=== PATIENT | female | born 1995 | race African-American/Black ===

== ENCOUNTER 2020-03-08 14:20 | Outpatient (CLI) | payer OTHER, SELFPAY ==
--- NOTE | ~2020-03-08 | US_ITS ---
EXAMINATION: US OB >= 14 weeks Fetus DATE: 03/08/2020 15:04 INDICATION: Circumvallate placenta. Second trimester. TECHNIQUE: Real-time ultrasound of the pelvis was performed. COMPARISON: None. FINDINGS: There is a single living fetus in vertex presentation. The placenta is anterior and fundal. he art rate is 150 beats per minute (bpm). The amniotic fluid volume is subjectively normal. IMPRESSION: 1. Single living fetus in vertex presentation. 2. Normal placenta. Reviewed, dictated and finalized at location A.
== END 2020-03-08 14:21 | disposition home or self-care (01) ==
PROVIDERS: Visit Provider Obstetrics & Gynecology
DX: O43.119 Circumvallate placenta, unspecified trimester (principal); Z3A.00 Weeks of gestation of pregnancy not specified
CPT/HCPCS: 76805

== ENCOUNTER 2020-04-05 14:42 | Outpatient (CLI) | payer OTHER, SELFPAY ==
--- NOTE | ~2020-04-05 | US_ITS ---
EXAMINATION: US OB follow up DATE: 04/05/2020 15:28 INDICATION: Assess growth at the junction of the second and third trimester TECHNIQUE: Real-time ultrasound of the pelvis was performed. The interpreting radiologist was not pre sent for the study. COMPARISON: None. FINDINGS: There is a single living fetus in vertex presentation. The placenta is anterior. heart rate is 157 beats per minute (bpm). The amniotic fluid volume is subjectively normal. The following biometric data were obtained: Head circumference: 25.0 cm -> 27 weeks 1 days Abdominal circumference: 22.7 cm -> 27 weeks 1 days Femur length: 5.0 cm -> 26 weeks 6 days These measurements are concordant. Head circumference to abdominal circumference ratio: 1.10 (normal range 1.05-1.22). Estimated weight: 1018 g (+/-) 153 g. or 2 lbs. 4 oz. (+/-) 5 oz. IMPRESSION: 1. Single living fetus in vertex presentation with heart rate of 157 bpm. 2. Estimated weight is 28th percentile by Hadlock criteria when 07/03/2020 is used as the estima bruce date of delivery (MG). Please correlate with clinical information or earlier ultrasounds for mos t accurate MG. Reviewed, dictated and finalized at location B. IMPRESSION: 1. Single living fetus in vertex presentation with heart rate of 157 bpm. 2. Estimated weight is 28th percentile by Hadlock criteria when 07/03/2020 is used as the estimated date of delivery (MG). Please correlate with clinica l information or earlier ultrasounds for most accurate MG.
== END 2020-04-05 14:43 | disposition home or self-care (01) ==
PROVIDERS: Visit Provider Obstetrics & Gynecology
DX: O43.119 Circumvallate placenta, unspecified trimester (principal)
CPT/HCPCS: 76816

== ENCOUNTER 2020-05-03 14:22 | Outpatient (CLI) | payer OTHER, SELFPAY ==
--- NOTE | ~2020-05-03 | US_ITS ---
US OB follow up DATE: 05/03/2020 15:11 INDICATION: Growth follow-up TECHNIQUE: Real-time imaging and Doppler analysis COMPARISON: 04/05/2020 and 03/08/2020 at several ultrasound examinations FINDINGS: Live lucio intrauterine gestation, fetus in vertex presentation, longitudinal lie. Ante rior placenta. Amniotic fluid index measures 18.6 cm, within normal range. (5th percentile SENTHIL: 8.8 cm; 95th percent ile SENTHIL: 23.8 cm). Biparietal diameter 8.39 cm; 33 weeks 5 days Head circumference 28.84 cm; 31 weeks 5 days Abdominal circumference 25.85 cm; 30 weeks Femur length 5.85 cm; 30 weeks 4 days Composite age by Wana formula is 31 weeks 4 days +/- 2 weeks 1 day, with MG of 07/01/2020, compar ed to 07/03/2020 by LMP. (Third trimester ultrasound estimates of gestational age are not optimally accurate and should not al ter an established gestational age from first or second trimester ultrasound or reliable LMP.). Head circumference/abdominal circumference measures 1.12, within normal range of 0.965-1.15. Femur length/abdominal circumference 22.63, within normal range Femur length/head secures 20.29, within normal range of 19.19-21.30. Estimated weight is 1609 +/- 2 141 g. IMPRESSION: Normal interval growth Reviewed, dictated and finalized at Location A. Reviewed, dictated and finalized at location A. BACKING STENCILER IMPRESSION: Normal interval growth
== END 2020-05-03 14:23 | disposition home or self-care (01) ==
LOC: ANHIMG 14:27
PROVIDERS: Visit Provider Obstetrics & Gynecology
DX: O43.119 Circumvallate placenta, unspecified trimester (principal); Z3A.31 31 weeks gestation of pregnancy
CPT/HCPCS: 76816

== ENCOUNTER 2020-06-10 10:52 | Outpatient (CLI) | payer OTHER, SELFPAY ==
--- NOTE | ~2020-06-10 | US_ITS ---
EXAMINATION: US OB follow up DATE: 06/10/2020 11:39 INDICATION: Circumvallate placenta, growth assessment, third trimester TECHNIQUE: Real-time ultrasound of the pelvis was performed. The interpreting radiologist was not pre sent for the study. COMPARISON: 05/03/2020 FINDINGS: There is a single living fetus in vertex presentation. The placenta is anterior. card iac activity and movement are noted. heart rate is 144 beats per minute (bpm). The amniot ic fluid index is subjectively normal. The following biometric data were obtained: Biparietal diameter (BPD): 8.9 cm; head circumference (HC): 34.3 cm; abdominal circumference (AC): 32 .5 cm; femur length (FL): 7.2 cm. The head circumference to abdominal circumference ratio is greater than two standard deviations above the mean. These measurements are otherwise concordant. Estimated weight is 3079 g +/- 461 g, which correlates with the 62nd percentile when 07/03/2020 is used as estimated date of delivery. As single measurements, these parameters are each equal to the following estimated gestational ages w ith ranges of +/- 2 standard deviations: BPD: 36 weeks 3 days +/- 3 weeks 1 days. HC: 39 weeks 5 days +/- 2 weeks 5 days. AC: 36 weeks 3 days +/- 3 weeks 0 days. FL: 37 weeks 0 days +/- 3 weeks 1 days. estimated gestational age based solely on measurements from this exam is 37 weeks 3 days +/- 2 weeks 4 days. IMPRESSION: 1. Single living fetus in vertex presentation. 2. Estimated weight is 3079 g +/- 461 g, which correlates with the 62nd percentile when 07/03/19 21 is used as estimated date of delivery. 3. Head circumference to abdominal circumference ratio greater than two standard deviations above the mean. Reviewed, dictated and finalized at location A. SCAPE MANAGER IMPRESSION: 1. Single living fetus in vertex presentation. 2. Estimated weight is 3079 g +/- 461 g, which correlates with the 62nd p ercentile when 07/03/2020 is used as estimated date of delivery. 3. Head circumference to abdominal circumference ratio greater than two standar d deviations above the mean.
== END 2020-06-10 10:53 | disposition home or self-care (01) ==
PROVIDERS: Visit Provider Obstetrics & Gynecology
DX: O43.119 Circumvallate placenta, unspecified trimester (principal); Z3A.37 37 weeks gestation of pregnancy
CPT/HCPCS: 76816

== ENCOUNTER 2020-07-02 01:10 | Inpatient (IN) | payer OTHER, SELFPAY ==
[2020-07-02] VITALS (117 sets, daily range): BP systolic 88–167; BP diastolic 48–127; PULSE 61–144; RESP 14–20; TEMP 36.1–37.1; O2SAT 97–100; BMI 40.8
--- NOTE | 2020-07-02 01:45 | LDADM ---
This patient, Ashanti Estrada, was admitted to Labor/Delivery/Recovery 106 on 07/02/20 at 01:10. Plans for labor, pain management and were discussed with patient. Patient/family oriented to hospital policies and general routines including ID bracelet, bed and alarms, visiting hours, pain management, procedures, bathroom and other care routines, personal items, smoking policy, room service/diet and guest tray routines, infant security routines, and visiting hours. Patient/Family are encouraged to report perceived risks to care and to ask questions if they do not understand what they are told or what they should do. See OBIX for further documentation.
[2020-07-02 02:27] LABS: Basophils Percent Auto 0.2 % (0.2-1.2); Eosinophils Absolute Auto 0.1 K/mm3 (0-0.3); Hematocrit 33.9 % (37.0-47.0); Hemoglobin 10.9 g/dL (12.0-15.0); Immature Granulocyte Absolute 0.16 K/mm3 (0.00-0.031); Immature Granulocyte Percent A 1.1 % (0-0.5); Lymphocytes Percent Auto 11.2 % (18.3-44.2); Mean Corpuscular HGB Conc 32.2 g/dl (32-36); Mean Corpuscular Hemoglobin 26.8 pg (26-34); Mean Corpuscular Volume 83.3 fl (80-100); Mean Platelet Volume 10.8 fl (7.4-10.4); Monocytes Absolute Auto 1.3 K/mm3 (0.1-0.6); Monocytes Percent Auto 9.1 % (2.6-8.5); Neutrophils Absolute Auto 11.1 K/mm3 (1.3-6.7); Neutrophils Percent Auto 77.4 % (45.5-73.1); Platelet Count Result 255 k/mm3 (150-375); Red Blood Count 4.07 M/mm3 (4.2-5.4); Red Cell Distribution Width 14.4 % (11.5-14.5); White Blood Count 14.3 K/mm3 (4.5-10.0)
[2020-07-02] MEDS: LACTATED RINGERS 1,000 ML 125 ML IV CONT ×2 (02:34→04:27)
--- NOTE | 2020-07-02 03:39 | WPDANESEPPF ---
Anes - Initial Pre Proc Eval Procedure: labor epidural Date/Time: 07/02/20 03:39 Surgeon: Sherly Holcomb MD Pre Op Diagnosis: labor pain Pre Op Diagnosis: SROM Patient Data Age: 24 Gender: F Height: Weight: Last Vital Signs Temp 36.4 C L 07/02/20 02:12 Pulse 81 07/02/20 03:38 BP 108/66 07/02/20 03:38 Pulse Ox 99 07/02/20 03:39 Allergies Allergy/AdvReac Type Severity Reaction Status Date / Time No Known Allergies Allergy Verified 07/01/20 12:17 Home Medications Medication Instructions Recorded Confirmed Type docosahexaenoic acid 200 mg capsule mg PO 01/22/20 06/10/20 History Laboratory Tests 07/02/20 07/02/20 02:07 02:08 WBC 14.3 K/mm3 H K/mm3 (4.5-10.0) RBC 4.07 M/mm3 L M/mm3 (4.2-5.4) Hgb 10.9 g/dL L g/dL (12.0-15.0) Hct 33.9 % L % (37.0-47.0) MCV 83.3 fl fl (80-100) MCH 26.8 pg pg (26-34) MCHC 32.2 g/dl g/dl (32-36) RDW 14.4 % % (11.5-14.5) Plt Count 255 k/mm3 k/mm3 (150-375) MPV 10.8 fl H fl (7.4-10.4) Immature Gran % (Auto) 1.1 % H % (0-0.5) Neut % (Auto) 77.4 % H % (45.5-73.1) Lymph % (Auto) 11.2 % L % (18.3-44.2) Chase % (Auto) 9.1 % H % (2.6-8.5) Eos % (Auto) 1.0 % % (0-4.4) Baso % (Auto) 0.2 % % (0.2-1.2) Lymph # (Auto) 1.60 K/mm3 K/mm3 (0.9-3.2) Chase # (Auto) 1.3 K/mm3 H K/mm3 (0.1-0.6) Eos # (Auto) 0.1 K/mm3 K/mm3 (0-0.3) Baso # (Auto) 0.0 K/mm3 K/mm3 (0.0-0.1) Abs Immat Gran (auto) 0.16 K/mm3 H K/mm3 (0.00-0.031) Absolute Neuts (auto) 11.1 K/mm3 H K/mm3 (1.3-6.7) Absolute Nucleated RBC 0.0 K/mm3 K/mm3 (0.0-0.012) Nucleated RBC % 0.0 % % (0.0-0.2) RPR Pending Patient hx anesthesia problems: none Family hx anesthesia problems: none PMFSH Past Medical History Medical History (induced) termination of with unspecified complications 2018 Surgical History Surgical History H/O dilation and curettage 2017 Family History Family History Grandparent Diabetes mellitus Social History Social History Smoking status: Never smoker Second hand tobacco smoke exposure: No Alcohol intake: never Substance use: never Spiritual care concerns: No Anes - Eval Final PreProcedure Day of Procedure 07/02/20 03:39 Patient weight: obese ASA classification: II Anesthesia type and monitoring: regional epidural Informed Consent: The patient's anesthetic plan and its attendant risks and benefits were discussed with the patient/family/POA. Questions were solicited and answers provided to the satisfaction of the patient/family/POA.
[2020-07-02] MEDS: ONDANSETRON INJ 4 MG/2 ML VIAL IV PUSH (04:44)
[2020-07-02 05:14] LABS: Amphetamine Screen Urine Negative (Negative); Barbiturate Screen Urine Negative (Negative); Benzodiazepines Screen Urine Negative (Negative); Cannabinoid Screen Urine Positive (Negative); Cocaine Screen Urine Negative (Negative); Methadone Screen Urine Negative (Negative); Opiate Screen Urine Negative (Negative); Phencyclidine Screen Urine Negative (Negative)
--- NOTE | 2020-07-02 07:29 | PM.IMHP ---
H&P: HPI History of Present Illness Date/Time: 07/02/20 07:29 The patient is a 24-year-old who presented to Labor and delivery on the morning of 07/02/2020 at 39 weeks and 6 days gestation with complaints of leakage of fluid. Patient reported spontaneous rupture of membranes at 12:30 a.m. Initial report was clear amniotic fluid, however, upon presentation to Labor and delivery, fluid was noted to be meconium stained. Patient reported occasional contractions prior to rupture of membranes, however, reported an increase in frequency and intensity of contractions after rupture. Patient's cervical exam at presentation was 3.5 cm dilated. Decision made to admit patient to labor and delivery. Chief Complaint: Leakage of fluid Narrative: Ashanti Estrada is a 24 year old female Review of Systems Review of Systems: All systems reviewed & are unremarkable except as noted in HPI and below Constitutional: Constitutional: Reports as per HPI, Reports no additional constitutional complaints, Denies chills, Denies fever(s), Denies headache(s) and Denies night sweats Eyes: Eyes: Reports as per HPI and Reports no additional eye complaints ENT: Reports system reviewed and no additional complaints, except as documented, Reports as per HPI, Reports Normal hearing present and Denies headache(s) Cardiovascular: Cardiovascular: Reports as per HPI, Reports no additional cardiovascular complaints, Denies chest pain and Denies dyspnea Respiratory: Respiratory: Reports as per HPI, Reports no additional respiratory complaints, Denies cough and Denies dyspnea Gastrointestinal: Gastrointestinal: Reports as per HPI, Reports no additional gastrointestinal complaints, Denies abdominal pain, Denies change in bowel habits, Denies change in stool character, Denies nausea and Denies vomiting Genitourinary: Genitourinary: Reports no additional female genitourinary complaints, Reports as per HPI, Denies abnormal vaginal bleeding, Denies genital lesions, Denies hot flashes, Denies dyspareunia, Denies pelvic pain, Denies sexual dysfunction, Denies urinary incontinence, Denies vaginal discharge, Denies vaginal dryness and Denies vaginal odor Musculoskeletal: Musculoskeletal: Reports no additional musculoskeletal complaints and Reports as per HPI Integumentary/Breasts: Skin/Breast: Reports system reviewed and no additional complaints, except as docu, Reports as per HPI, Denies breast pain and Denies nipple discharge Neurologic: Reports system reviewed and no additional complaints, except as documented, Reports as per HPI, Reports Normal hearing present and Denies headache(s) Psychiatric: Psychiatric: Reports no additional psychiatric complaints, Reports as per HPI, Denies anxiety and Denies depression Endocrine: Endocrine: Reports no additional endocrine complaints and Reports as per HPI Hematologic/Lymphatic: Hematologic/Lymphatic: Reports no additional hematologic/lymphatic complaints and Reports as per HPI Allergic/Immunologic: Allergic/Immunologic: Reports no additional allergic/immunologic complaints and Reports as per HPI PMFSH Past Medical History Medical History (induced) termination of with unspecified complications 2018 Surgical History Surgical History H/O dilation and curettage 2018 Family History Family History Grandparent Diabetes mellitus Social History Social History Smoking status: Never smoker Second hand tobacco smoke exposure: No Alcohol intake: never Substance use: never Spiritual care concerns: No Meds Home Medications and Allergies Home Medications Medication Instructions Recorded Confirmed Type docosahexaenoic acid 200 mg capsule mg PO 01/22/20 06/10/20 History Allergies Allergy/AdvReac Type Se
--- NOTE | 2020-07-02 07:40 | PM.OBPRVD ---
OB - Delivery Note Procedure Delivery date: 07/02/20 Procedure: Procedures Operation Date: 07/02/20 06:20 <No data on this case meets the specified criteria> events: Meconium Stained Fluid Intrapartal events: Deceleration Delivery monitor: external FHT, external uterine, internal FHT and internal uterine Route of delivery: Specimen: Yes (placenta and cord, cord gases, cord blood) Quantitative Blood Loss (ml): 215 Anesthesia type: Epidural Disposition: PACU Complications: No immediate complications Baby Date of : 07/02/20 Time of : 06:22 Weeks of gestation at delivery: 39 Infant gender: Female Weight (pounds): 7 Weight (ounces): 0 presentation: vertex Placenta delivery description: Manual Removal cord vessel description: 3 Vessels score one minute: 8 score five minutes: 9
--- NOTE | 2020-07-02 07:57 | PM.PROC ---
Procedure Note - Detailed Date of procedure: 07/02/20 Pre-op diagnosis: SROM Intrauterine at 39w6d gestation Nonreassuring heart tracing Post-op diagnosis: same Procedure performed: Emergent primary low transverse section via Pfannenstiel Description of procedure: Indication: The patient is a 24-year-old G2 now P1011 who presented to Labor and delivery on the morning of 07/02/2020 at 39 weeks and 6 days gestation with complaints of leakage of fluid. Patient reports spontaneous rupture of membranes at 12:30 a.m. Initial report was clear amniotic fluid, however, upon presentation to Labor and delivery, fluid was noted to be meconium stained. Patient reported occasional contractions prior to rupture of membranes, however, reported an increase in frequency and intensity of contractions after rupture. Patient's cervical exam at presentation was 3.5 cm dilated. Patient was admitted to Labor and delivery and allowed to progress on own. Patient became uncomfortable and requested an epidural at 3:20 a.m., which was placed without difficulty. At approximately 4:30 a.m., late decelerations were noted on monitoring. An FSE was placed for enhanced monitoring and patient was placed in various positions. tracing improved temporarily. After a short while, recurrent decelerations were noted again on monitor. An attempt to place an IUPC was made, however, unsuccessful. heart tracing did not adequately recover despite resuscitative measures. MD notified. Upon MD arrival, an IUPC was placed. SVE was 6cm dilated. However, despite further resuscitative measures, persistent decelerations were noted to a estrella in the 30s and decision was made to proceed with an emergent section for nonreassuring heart tracing. Procedure: The patient was taken to the operating room where she was transferred to the operating room table. She was placed in dorsal supine position with a slight leftward tilt. She was quickly prepped and draped in the usual sterile fashion. Epidural anesthesia which had been previously administered was tested and found to be adequate. A Pfannenstiel skin incision was made with a scalpel and carried through to underlying layer of fascia with Bovie. The fascia was incised in the midline and the incision was extended laterally with the use of Fairchild scissors. The rectus muscles were from the inferior aspect of the fascial incision manually. The superior aspect of the fascial incision was grasped with Beba clamps, elevated, and rectus muscle were dissected off with Fairchild scissors. The rectus muscles were in the midline the peritoneal cavity was entered bluntly. A bladder blade was inserted. A low-transverse uterine incision was made with a scalpel. This incision was extended laterally with bandage scissors as well as bluntly. The 's head was grasped and guided to the level of the uterine incision. Infant was noted to be in OP presentation and slightly asynclitic. The 's head was delivered atraumatically and without difficulty. The 's neck, shoulders, and rest of body were also delivered atraumatically with gentle fundal pressure. The 's nose and mouth were suctioned with bulb suction. The cord was clamped and cut and the was handed off to awaiting nursing staff. A segment of cord was collected for cord gases. Cord blood was collected. The placenta was then delivered with gentle uterine massage. The uterus was exteriorized and cleared of all clots and debris. The uterine incision was repaired with 0 Vicryl in a running locked fashion. A 2nd imbricating layer was performed with 0 Monocryl. On inspection, the uterus, ovaries, and fallopian tubes appeared to be normal. The uterus was replaced into abdominal cavity. The gutters were cleared of all clots and debris. Pinpoint areas of bleeding inferior to the uterine incision were noted. These areas were made hemostatic w
--- NOTE | 2020-07-02 08:17 | WPDHPUPDATE1 ---
History and Physical Update Update Date/Time: 07/02/20 08:17 History and Physical has been reviewed, including an updated exam of the patient. There are NO changes in the patient's condition. Risks, benefits, and alternatives have been discussed and questions answered. Patient agrees to proceed with procedure.
[2020-07-02] MEDS: OXYTOCIN 30 UNITS/NS 500 ML 30 UNITS/500 ML BAG 125 UNITS IV CONT (08:43)
[2020-07-02] MEDS: fentaNYL CITRATE INJ (*CRX) 100 MCG/2 ML VIAL 50 MCG IV PUSH (09:12)
[2020-07-02] MEDS: LORATADINE 10 MG TABLET PO (09:15)
--- NOTE | 2020-07-02 09:40 | PC.NURSE ---
Patient transferred to post room #278 via stretcher. Support person present. Oriented to unit, room, information board, rooming in, admission packet and security measures. Patient verbalizes understanding.
[2020-07-02 11:09] LABS: Rapid Plasma Reagin Non-Reactive (NonReactive)
--- NOTE | 2020-07-02 12:26 | PC.NURSE ---
Consulted with patient, reviewed feeding cues, frequencies, duration of feedings, feeding elimination flow sheet, and signs of adequate intake. Demonstrated stimulation techniques to wake for feeding. Assisted with to breast. Reviewed positioning/alignment, holding breast and asymmetrical latch on. was able to latch correctly. Infant nursed eagerly, with steady draws and occasional swallowing noted. Reviewed signs of a correct latch, effective nursing and suck swallow ratio. was able to maintain latch without discomfort to mother. Nipple care reviewed. Instructed mother to call out for RN assistance if she is unable to latch infant for feeding or she has discomfort with nursing. Instructed feeding should be initiated three hours from start of last feeding or if feeding cues are noted before. Mother voiced understanding of information shared.
[2020-07-02] MEDS: SIMETHICONE 80 MG TAB.CHEW PO ×2 (13:51→17:38)
[2020-07-02] MEDS: KETOROLAC 30 MG/ML VIAL (*BKC) IV PUSH ×2 (13:51→23:10)
[2020-07-02] MEDS: HYDROcodone/acetaminophen (*CRX) 5-325 MG TABLET 1 TAB PO ×3 (13:52→23:11)
[2020-07-02] MEDS: DEXTROSE 5%/0.45% SOD CHL 1,000 ML 125 ML IV CONT (13:52)
[2020-07-02] MEDS: DOCUSATE SODIUM 100 MG CAPSULE PO (17:38)
[2020-07-03 04:45] VITALS: BP 109/54; PULSE 80; RESP 14; TEMP 36.7; O2SAT 98
[2020-07-03] MEDS: HYDROcodone/acetaminophen (*CRX) 5-325 MG TABLET 1 TAB PO ×4 (04:51→23:28)
[2020-07-03] MEDS: IBUPROFEN 600 MG TABLET PO ×2 (04:52→14:28)
[2020-07-03 04:59] LABS: Basophils Percent Auto 0.1 % (0.2-1.2); Eosinophils Absolute Auto 0.1 K/mm3 (0-0.3); Eosinophils Percent Auto 0.8 % (0-4.4); Hematocrit 27.5 % (37.0-47.0); Hemoglobin 8.9 g/dL (12.0-15.0); Immature Granulocyte Absolute 0.12 K/mm3 (0.00-0.031); Immature Granulocyte Percent A 0.8 % (0-0.5); Lymphocytes Absolute Auto 1.35 K/mm3 (0.9-3.2); Lymphocytes Percent Auto 8.8 % (18.3-44.2); Mean Corpuscular HGB Conc 32.4 g/dl (32-36); Mean Corpuscular Hemoglobin 27.2 pg (26-34); Mean Corpuscular Volume 84.1 fl (80-100); Mean Platelet Volume 10.6 fl (7.4-10.4); Monocytes Absolute Auto 1.3 K/mm3 (0.1-0.6); Monocytes Percent Auto 8.2 % (2.6-8.5); Neutrophils Absolute Auto 12.4 K/mm3 (1.3-6.7); Neutrophils Percent Auto 81.3 % (45.5-73.1); Platelet Count Result 185 k/mm3 (150-375); Red Blood Count 3.27 M/mm3 (4.2-5.4); Red Cell Distribution Width 14.6 % (11.5-14.5); White Blood Count 15.3 K/mm3 (4.5-10.0)
[2020-07-03 07:02] VITALS: BP 103/57; PULSE 70; RESP 18; TEMP 36.6
--- NOTE | 2020-07-03 07:43 | WPDANLDPN2 ---
Anes-Prog Note L&D Date/Time: 07/03/20 07:43 Comfortable throughout: section Neuraxial method: epidural Epidural/Spinal procedure site: clean & non-tender Neuro status: Neuro function grossly intact. Cardiovascular status: normal Respiratory status: normal Airway patency: baseline Mental status: baseline Post-Op hydration status: normal Vital Signs: Last Vital Signs Temp 36.6 C 07/03/20 07:02 Pulse 70 07/03/20 07:02 Resp 18 07/03/20 07:02 BP 103/57 L 07/03/20 07:02 Pulse Ox 98 07/03/20 04:45 Pain score (VAS): 0 I/O: Intake & Output 07/02/20 07/02/20 07/03/20 15:59 23:59 07:59 Intake Total 1999 1600 1800 Output Total 585 3100 2500 Balance 0535 1500 -550 Post-procedural complaints: none Patient feedback: Patient satisfied with anesthetic care.
--- NOTE | 2020-07-03 07:43 | WPDANLDNPN2 ---
Anes-Prog Note L&D-Neuraxial Date/Time: 07/03/20 07:43 Neuraxial medications: epidural PF morphine Opiod-related complaints: none Patient feedback: Patient satisfied with post-operative pain management.
[2020-07-03] MEDS: POLYSACCHARIDE IRON COMPLEX 150 MG CAPSULE PO ×2 (08:24→17:28)
[2020-07-03] MEDS: DOCUSATE SODIUM 100 MG CAPSULE PO ×2 (08:24→17:27)
[2020-07-03] MEDS: MULTIVIT/MIN/PREN/FOL AC/IRON TABLET 1 TAB PO (08:25)
[2020-07-03] MEDS: SIMETHICONE 80 MG TAB.CHEW PO ×3 (08:25→17:27)
[2020-07-03] MEDS: HYDROcodone/acetaminophen (*CRX) 10-325 MG TABLET 1 TAB PO (08:25)
--- NOTE | 2020-07-03 08:59 | PM.OBPNVD ---
OB - PN: Subj Subjective Date/time seen: 07/03/20 08:59 Patient doing well this AM. Pain reasonably controlled with medication. Reported mild headache overnight as well as mild right shoulder pain, resolved. Denies any chest pain, SOB, N/V. Tolerating PO diet. Ortiz catheter removed. Has voided without difficulty. No flatus. Ambulating well. OB - PN: Obj Data Labs CBC & Chem 7: 07/03/20 04:51 Labs: Laboratory Results - last 24 hr 07/02/20 07/03/20 02:08 04:51 WBC 15.3 H RBC 3.27 L Hgb 8.9 L Hct 27.5 L MCV 84.1 MCH 27.2 MCHC 32.4 RDW 14.6 H Plt Count 185 MPV 10.6 H Immature Gran % (Auto) 0.8 H Neut % (Auto) 81.3 H Lymph % (Auto) 8.8 L Thurston % (Auto) 8.2 Eos % (Auto) 0.8 Baso % (Auto) 0.1 L Lymph # (Auto) 1.35 Thurston # (Auto) 1.3 H Eos # (Auto) 0.1 Baso # (Auto) 0.0 Abs Immat Gran (auto) 0.12 H Absolute Neuts (auto) 12.4 H Absolute Nucleated RBC 0.0 Nucleated RBC % 0.0 RPR Non-reactive OB - PN A/P Assessment and Plan (1) Delivery by section of full-term infant: Code(s): O82 - Encounter for delivery without indication Status: Acute Assessment and Plan: POD#1 doing well continue routine postoperative care encourage ambulation and use of IS Time Spent With Patient Time: Total time spent is greater than 50% in coordination of care (as documented) at patient's floor/unit and/or counseling patient: Exam Const: General: cooperative, healthy appearing, comfortable and no acute distress GI: Inspection: non-distended GI Palp: Yes Soft to palpation, Yes Tenderness to palpation present (GI) (appropriately tender) and No Guarding due to palpation present (GI) Other: inc c/d/i Extrem: Right lower extremity: no edema Left lower extremity: no edema Other: no calf tenderness
--- NOTE | 2020-07-03 12:32 | PC.NURSE ---
1150 breast feeding note; nurse has assisted mother and FOB with breast feeding this a.m.; mother uses football position; baby nursed one side 25 minutes, during which mother fell asleep because of her pain med.; the second side at 1010 for about 30minutes. Reviewed getting infant skin to skin, use of c-hold, alignment, and importance of deep, maintained latch for effective breast feeding and mother's comfort. shown ways to keep infant awake to feed; reviewed frequency and duration of feedings, waking if needed. Feeding log reviewed for monitoring feedings and wet-dirty diapers per day of age. Parents seemed attentive; FOB engaged in teaching and assisting with baby care. He was planning on doing skin to skin with baby while mother rested. Mother voiced understanding of information shared; Nurse offered to come at baby's next feeding if mother desired assistance, or if she was having any difficulty latching infant to feed. Mother agreed.
[2020-07-03 20:00] VITALS: BP 124/68; PULSE 95; RESP 18; TEMP 36.7; O2SAT 100
[2020-07-04] MEDS: IBUPROFEN 600 MG TABLET PO ×2 (01:51→08:46)
[2020-07-04] MEDS: HYDROcodone/acetaminophen (*CRX) 10-325 MG TABLET 1 TAB PO ×2 (01:52→05:12)
[2020-07-04 07:50] VITALS: BP 102/51; PULSE 86; RESP 18; TEMP 36.6; O2SAT 98
--- NOTE | 2020-07-04 08:38 | PM.OBPNVD ---
OB - PN: Subj Subjective Date/time seen: 07/04/20 08:38 Patient doing well this morning. Pain well controlled medication. Denies any headache, chest pain, shortness of breath, nausea, or vomiting. Tolerating p.o. diet. Ambulating without difficulty. Voiding well. Passing flatus. OB - PN: Obj Data Labs CBC & Chem 7: 07/03/20 04:51 OB - PN A/P Assessment and Plan (1) Delivery by section of full-term infant: Code(s): O82 - Encounter for delivery without indication Status: Acute Assessment and Plan: POD#2 doing well continue routine postoperative care encourage ambulation and use of IS discharge home in stable condition emergency precautions reviewed all questions and concerns addressed instructed to f/u with primary OB in 2 weeks Time Spent With Patient Time: Total time spent is greater than 50% in coordination of care (as documented) at patient's floor/unit and/or counseling patient: Exam Const: General: cooperative, healthy appearing, comfortable and no acute distress GI: Inspection: non-distended GI Palp: Yes Soft to palpation and No Tenderness to palpation present (GI) Other: inc c/d/i fundus below umbilicus Extrem: Right lower extremity: no edema Left lower extremity: no edema Other: no calf tenderness
--- NOTE | 2020-07-04 08:44 | P.DS_ITS ---
DS: Admitting Diagnosis Admitting Diagnosis Admitting Diagnosis: SROM DS: Discharge Diagnosis Discharge Diagnosis (1) Delivery by section of full-term infant: Code(s): O82 - Encounter for delivery without indication Status: Acute OB - DS: Summary OB Procedures : None OB Procedures Intrapartum: OB Procedures: : None Peripartum Data Procedures: Procedures Operation Date: 07/02/20 06:20 Actual Procedures Side Surgeon p Section Marcia Hall MD Time Spent with Patient Time attestation: Total time spent providing and/or coordinating discharge services: DS: Data Data Completed and Pending Pending studies at discharge: Pending at discharge 07/02/20 06:23 Surgical [PTH] Routine Discharge Plan Discharge Attending physician on discharge: Marcia Hall Discharging Clinician: Marcia Hall Anticipated Discharge Date/Time: 07/04/20 08:45 Patient Disposition: Home, Self-Care Activity: pelvic rest Diet: regular Discharge Instructions: Call office ([phone]) to schedule the following appointments: 1. Postoperative/wound check in 2 weeks. 2. visit in 4-6 weeks. You may take Ibuprofen 600mg every 6 hours as needed for pain. I have sent a prescription for a stronger pain medication, [place], to your pharmacy. You may take this as prescribed for breakthrough pain (pain that is not controlled with Ibuprofen). No driving for at least two weeks. You also may not drive while taking narcotics. Pain medication may make you constipated. It may be helpful to take an [id number] stool softener, such as Colace and/or Senokot, along with the pain medication to help lessen constipation. Call office or go to ED for pain not controlled with medication, headache, chest pain, shortness of breath, fever, chills, persistent nausea or vomiting, severe abdominal pain, heavy vaginal bleeding >2 pads/hour, foul vaginal discharge or odor, any redness near incision, severe pain, pus or drainage from incision site, or problems with your breasts. Patient Instructions: Antibiotic Form Stand Alone Forms: General Discharge Information Follow-up/Referrals: Sherly Holcomb MD [Physician] - Discharge Medications: New polysaccharide iron complex 150 mg iron Capsule 150 mg PO BIDWM Qty: 60 RF: 0 hydrocodone-acetaminophen 5-325 mg Tablet 1 - 2 tablet PO Q4-6H PRN (Reason: Moderate Pain (4-6)) Qty: 30 RF: 0 Continued DHA 200 mg capsule PO RF: 0 Date of admission: 07/02/20 01:10 Primary Care Provider: PHYSICIAN,TRANSPLANT IMMUNOLOGIST Admitting Provider: Sherly Holcomb Attending physician on admission: Sherly Holcomb Condition: Stable
[2020-07-04] MEDS: POLYSACCHARIDE IRON COMPLEX 150 MG CAPSULE PO (08:45)
[2020-07-04] MEDS: DOCUSATE SODIUM 100 MG CAPSULE PO (08:45)
[2020-07-04] MEDS: HYDROcodone/acetaminophen (*CRX) 5-325 MG TABLET 1 TAB PO (08:45)
[2020-07-04] MEDS: MULTIVIT/MIN/PREN/FOL AC/IRON TABLET 1 TAB PO (08:46)
--- NOTE | 2020-07-04 15:34 | PC.NURSE ---
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 Pt does plan to register with the WIC program, and can obtain a pump through them. Pt voiced understanding of the process.
[2020-07-05 08:37] VITALS: BP 122/77; PULSE 113; RESP 20; TEMP 37.7; O2SAT 99
== END 2020-07-04 12:36 | disposition home or self-care (01) | DRG 540 ==
LOC: ANHLDR 01:56 → ANHOB2 07-04 08:47 → ANHLDR 07-05 11:40 → ANHOB2 07-05 11:40
PROVIDERS: Admitting Provider Obstetrics & Gynecology; Visit Provider Student in an Organized Health Care Education/Training Program
PROC: 10D00Z1 Extraction of Products of Conception, Low, Open Approach (ICD-10-PCS; CPT 59514; principal; 2020-07-02 06:20)
DX: O77.0 Labor and delivery complicated by meconium in amniotic fluid (principal); Z37.0 Single live birth; Z3A.39 39 weeks gestation of pregnancy; O99.214 Obesity complicating childbirth; E66.9 Obesity, unspecified; O36.8330 Maternal care for abnormalities of the fetal heart rate or rhythm, third trimester, not applicable or unspecified
CPT/HCPCS: 36415; 80307; 84112; 85025; 86592; 86850; 86900; 86901; 88307; A9270; C1765; J0690; J1200; J1885; J2274; J2405; J2590; J2795; J3010; J7120